=== PATIENT | female | born 1935 | race African-American/Black ===

== ENCOUNTER 2016-06-05 19:27 | Emergency (ER) | payer MEDICARE, BC ==
[2016-06-05 19:52] VITALS: BP 148/80
--- NOTE | 2016-06-05 20:43 | ER Document Report ---
ED Blood Sugar Problem - General Chief Complaint: High Blood Sugar Stated Complaint: BLOOD SUGAR PROBLEM Notes: Patient is here because her blood sugars have been running high. Patient is an oral agent diabetic on glipizide 10 mg twice a day. She says her blood sugars have been running in the 300s today instead of the usual 100s. Patient traveled here yesterday from [place] for a week stay with family. On the day before her flight here, on Monday, the , patient received an injection of cortisone in her left shoulder. Not certain what the actual medication was that she received. Patient has been feeling somewhat dizzy and lightheaded today. No vomiting or diarrhea. No chest pains. No shortness of breath. No fevers or chills. TRAVEL OUTSIDE OF THE [place] IN LAST 30 DAYS: No - Related Data Allergies/Adverse Reactions: sulfamethoxazole [From Bactrim] Allergy (Verified 06/05/16 19:49) trimethoprim [From Bactrim] Allergy (Verified 06/05/16 19:49) Past Medical History - Social History Smoking Status: Never Smoker Chew tobacco use (# tins/day): No Frequency of alcohol use: None Drug Abuse: None Family History: Reviewed & Not Pertinent Patient has suicidal ideation: No Patient has homicidal ideation: No Neurological Medical History: Reports: Other - Left foot drop which requires her to wear a brace. Uncertain reason for the foot drop. Endocrine Medical History: Reports: Hx Diabetes Mellitus Type 2 Musculoskeltal Medical History: Reports Hx Arthritis Surgical Hx: Negative - Immunizations Hx Diphtheria, Pertussis, Tetanus Vaccination: No Review of Systems - Review of Systems Notes: REVIEW OF SYSTEMS: CONSTITUTIONAL : Denies fever. EENT: Denies eye, ear, nose or mouth or throat pain or other symptoms. CARDIOVASCULAR: Denies chest pain. RESPIRATORY: Denies cough, chest congestion, or shortness of breath. GASTROINTESTINAL: Denies abdominal pain or nausea, vomiting, or diarrhea. GENITOURINARY: Denies difficulty or painful urinating, urinary frequency, blood in urine. MUSCULOSKELETAL: Denies back or neck pain. Denies joint pain or swelling. SKIN: Denies rash or skin lesions. NEUROLOGICAL: Denies LOC or altered mental status. Denies headache. Denies sensory loss or motor deficits. Does feel lightheaded and dizzy, as mentioned in history of present illness. Is able to walk with her customary walker, but feels a little unsteady on her feet today. Has never had a stroke and doesn't have any neurologic deficits at this time. Her symptoms do not sound like a stroke or TIA. ALL OTHER SYSTEMS REVIEWED AND NEGATIVE. Physical Exam - Vital signs Vitals: Temp Pulse Resp BP Pulse Ox 97.9 F 57 L 18 148/80 H 98 06/05/16 19:50 06/05/16 19:50 06/05/16 19:50 06/05/16 19:50 06/05/16 19:50 Interpretation: Normal - Notes Notes: PHYSICAL EXAMINATION: GENERAL: Well-appearing, in no acute distress. Vital signs essentially normal. HEAD: Atraumatic, normocephalic. EYES: Pupils equal round and reactive to light, extraocular movements intact. NECK: Normal range of motion, supple. LUNGS: Breath sounds clear and equal bilaterally. HEART: Regular rate and rhythm without murmurs. ABDOMEN: Soft, nontender. No guarding or rebound. BACK: No tenderness throughout entire back. EXTREMITIES: Normal range of motion without pain. Left foot has a hinged brace that the patient wears due to her foot drop. NEUROLOGICAL: Normal speech. Excepting for the disability secondary to the left foot drop, patient has normal sensory, motor, and reflex exams. Awake, alert, and oriented x3. Cranial nerves normal. PSYCH: Normal mood, normal affect. SKIN: Warm, dry, no rashes. Course - Vital Signs Vital signs: Temp Pulse Resp BP Pulse Ox 97.9 F 57 L 18 148/80 H 98 06/05/16 19:50 06/05/16 19:50 06/05/16 19:50 06/05/16 19:50 06/05/16 19:50 - Laboratory Laboratory results interpreted by me: 06/05/16 20:35 POC Glucose 289 H Discharge - Discharge Clinical Impression: Hyperglycemia Condition: Stable Disposition: HOME, SELF-CARE Additional Instructions: HYPERGLYCEMIA (HIGH BLOOD SUGAR): You have an abnormally high blood sugar. Not all high blood sugar requires long-term treatment. High blood sugar can be due to medications, , or the stress of illness. (These cases are "borderline diabetes.") If the doctor feels your high blood sugar might resolve with time, you may not require treatment now. It's very important that you follow through, to see if the blood sugar returns to normal levels. Uncontrolled high blood sugar leads to early heart disease, strokes, nerve damage, eye damage, and kidney damage. Call the physician if there is faintness, excess sleepiness, or very rapid breathing. DIABETES: You have an abnormally high blood sugar, suspicious for diabetes. Not all high blood sugar requires long-term treatment. High blood sugar can be due to medications, , or the stress of illness. (These cases are "borderline diabetes.") If the doctor feels your high blood sugar might get better with time, you may not require treatment now. It's very important that you follow through. Uncontrolled high blood sugar leads to early heart disease, strokes, nerve damage, eye damage, and kidney damage. All diabetics should follow a diet designed to control the blood sugar. Overweight diabetics should exercise regularly and lose weight. If this is not sufficient to control the blood sugar, pills or insulin shots are necessary. Younger people who develop diabetes almost always require insulin daily. Home testing of blood sugars or urine sugar is required. Diabetic teaching is available to help you figure insulin doses and monitor the blood sugar. Call the physician if there is faintness, excess sleepiness, or very rapid breathing. If hypoglycemia (LOW blood sugar) develops, symptoms are shakiness, weakness, sweating, and confusion. In this case, you should eat or drink something with sugar at once. Your blood sugar is probably running high because of the cortisone injection you got in your left shoulder Monday. It is a well-known fact that steroid medications will increase your blood sugars. The various symptoms of dizziness , etc. that you're experiencing are probably all related to your sugar being elevated. Over the next few days or week, your blood sugar should trend back to your normal values and your symptoms should improve and resolve completely. Don't change anything about your current medications. Remain active. Return if you develop new symptoms or worsening symptoms in any way feel you need to be further evaluated. FOLLOW-UP CARE: If you have been referred to a physician for follow-up care, call the physician s office for an appointment as you were instructed or within the next two days. If you experience worsening or a significant change in your symptoms, notify the physician immediately or return to the Emergency Department at any time for re-evaluation.
== END 2016-06-05 20:43 | disposition home or self-care (01) ==
LOC: ER 19:27
DX: E11.65 Type 2 diabetes mellitus with hyperglycemia (principal)
CPT/HCPCS: 82962; 99283